=== PATIENT | female | born 2000 ===

== ENCOUNTER 2024-06-10 21:50 | Emergency (ER) | payer OTHER ==
[2024-06-11] MEDS: Ondansetron 4 MG/2 ML SDV IVPUSH ONE (00:10)
[2024-06-11] MEDS: Sodium Chloride 0.9% 1,000 ML IV ONE ×3 (00:10→03:19)
[2024-06-11] MEDS: Sodium Chloride 0.9% 10 ML Syringe FLUSH PRN (00:10)
[2024-06-11] MEDS: Famotidine 20 MG/2 ML SDV IVPUSH ONE (00:10)
[2024-06-11 00:36] LABS: BASOPHILS ABSOLUTE AUTO 0.04 K/uL (0.00-0.20); BASOPHILS PERCENT AUTO 0.2 % (0.0-1.0); HEMATOCRIT 49.2 % (37.0-47.0); HEMOGLOBIN 16.5 g/dL (12.0-16.0); IMMATURE GRAN PERCENT AUTO 0.5 % (0.0-0.4); LYMPHOCYTES ABSOLUTE AUTO 2.16 K/uL (1.00-4.80); LYMPHOCYTES PERCENT AUTO 10.2 % (24.0-44.0); MEAN CORPUSCULAR HEMOGLOBIN 29.5 pg (28.0-32.0); MEAN CORPUSCULAR HGB CONC 33.5 g/dL (32.0-36.0); MEAN PLATELET VOLUME 10.3 fL (9.4-12.3); MONOCYTES ABSOLUTE AUTO 2.29 K/uL (0.00-0.80); MONOCYTES PERCENT AUTO 10.8 % (0.0-8.0); NEUTROPHILS ABSOLUTE AUTO 16.69 K/uL (1.80-7.70); NEUTROPHILS PERCENT AUTO 78.3 % (41.0-71.0); PLATELET COUNT,PLT 367 K/uL (150-400); RED BLOOD CELL COUNT 5.59 M/uL (4.10-5.30); WHITE BLOOD CELL COUNT,WBC 21.28 K/uL (3.9-11.3)
[2024-06-11 00:49] LABS: APPEARANCE,URINE SLT CLOUDY; COLOR,URINE YELLOW; GLUCOSE,URINE NEGATIVE (NEGATIVE); KETONES,URINE 40 mg/dL (NEGATIVE); LEUKOCYTE ESTERASE,URINE NEGATIVE (NEGATIVE); NITRITE,URINE NEGATIVE (NEGATIVE); OCCULT BLOOD,URINE TRACE-INTACT (NEGATIVE); PROTEIN,URINE >=300 mg/dL (NEGATIVE); UROBILINOGEN,URINE 0.2 EU/dL (<2.0)
[2024-06-11 00:57] LABS: ALBUMIN 4.6 g/dL (3.4-5.0); BILIRUBIN TOTAL 0.8 mg/dL (0.2-1.0); CALCIUM 9.9 mg/dL (8.5-10.1); CARBON DIOXIDE,CO2 24.8 mmol/L (21.0-32.0); CREATININE 1.2 mg/dL (0.6-1.0); EST CRCL DRUG DOSING (CG) 67.67 mL/min; MAGNESIUM 2.8 mg/dL (1.8-2.4); POTASSIUM,K 3.9 mmol/L (3.5-5.1); PROTEIN TOTAL,TP 9.1 g/dL (6.4-8.2)
[2024-06-11 00:57] LABS: BACTERIA,URINE MODERATE (NEGATIVE); BILIRUBIN,URINE SMALL (NEGATIVE); EPITHELIAL CELLS,URINE MODERATE (NONE-FEW); WBC,URINE 0-2 (0-5/HPF)
[2024-06-11 00:58] LABS: MUCUS,URINE MODERATE (NONE-MOD)
[2024-06-11 01:03] LABS: INR 1.18 (0.86-1.11)
[2024-06-11] MEDS: Iopamidol 755 MG/ML 500 ML Multipack Bottle IVPUSH ONE (02:54)
[2024-06-11] MEDS: Promethazine 25 MG/ML SDV IM ONE (03:36)
== END 2024-06-11 04:56 | disposition home or self-care (01) ==
LOC: MW.ED 21:50
DX: R11.2 Nausea with vomiting, unspecified (principal); R10.84 Generalized abdominal pain; N30.01 Acute cystitis with hematuria; R80.9 Proteinuria, unspecified; R79.89 Other specified abnormal findings of blood chemistry; E86.0 Dehydration; D72.829 Elevated white blood cell count, unspecified
CPT/HCPCS: 36415; 74177; 80053; 81001; 83605; 83690; 83735; 84703; 85025; 85610; 96361; 96372; 96374; 96375; 99284; J2405; J2550; J3490; J7030; Q9967

== ENCOUNTER 2024-06-12 17:56 | Emergency (ER) | payer OTHER ==
[2024-06-12] MEDS ORDERED: Sodium Chloride 0.9% 2.5 ML Syringe FLUSH PRN (17:59)
[2024-06-12] MEDS ORDERED: Sodium Chloride 0.9% 10 ML Syringe FLUSH PRN (17:59)
[2024-06-12] MEDS: Ondansetron 4 MG/2 ML SDV IVPUSH STA (18:09)
[2024-06-12] MEDS: Promethazine 25 MG/ML SDV IM STA (18:25)
[2024-06-12] MEDS: Sodium Chloride 0.9% 1,000 ML IV STA ×2 (18:25→19:15)
[2024-06-12 18:36] LABS: HEMATOCRIT 45.3 % (37.0-47.0); HEMOGLOBIN 15.3 g/dL (12.0-16.0); MEAN CORPUSCULAR HEMOGLOBIN 29.7 pg (28.0-32.0); MEAN CORPUSCULAR HGB CONC 33.8 g/dL (32.0-36.0); MEAN PLATELET VOLUME 9.7 fL (9.4-12.3); PLATELET COUNT,PLT 341 K/uL (150-400); RED BLOOD CELL COUNT 5.15 M/uL (4.10-5.30)
[2024-06-12 18:59] LABS: ALANINE AMINOTRANSFERASE,ALT 26 IU/L (14-63); ALBUMIN 4.3 g/dL (3.4-5.0); ALKALINE PHOSPHATASE 67 U/L (46-116); ASPARTATE AMNIOTRANSFERASE,AST 28 IU/L (15-37); BILIRUBIN TOTAL 1.5 mg/dL (0.2-1.0); BLOOD UREA NITROGEN,BUN 18 mg/dL (7.0-18.0); CALCIUM 9.6 mg/dL (8.5-10.1); CARBON DIOXIDE,CO2 24.5 mmol/L (21.0-32.0); CHLORIDE,CL 107 mmol/L (98-107); CREATININE 1.2 mg/dL (0.6-1.0); GLUCOSE RANDOM 117 mg/dL (74-106); LIPASE 61 U/L (16-77); POTASSIUM,K 3.4 mmol/L (3.5-5.1); PROTEIN TOTAL,TP 8.4 g/dL (6.4-8.2); SODIUM,NA 146 mmol/L (136-145)
[2024-06-12 19:00] LABS: A/G RATIO 1.1 (0.9-1.6); ESTIMATED GFR 65 mL/min (>60)
[2024-06-12 19:02] LABS: LYMPHOCYTES ABSOLUTE MAN 2.69 K/uL (1.00-4.80); LYMPHOCYTES PERCENT MAN 16 % (24-44); MONOCYTES ABSOLUTE MAN 1.34 K/uL (0.00-0.80); MONOCYTES PERCENT MAN 8 % (0-8); SEG NEUTROPHILS ABSOLUTE MAN 12.77 K/uL (1.80-7.70); SEG NEUTROPHILS PERCENT MAN 76 % (41-71)
[2024-06-12] MEDS: Prochlorperazine 10 MG/2 ML SDV IVPUSH STA (21:35)
[2024-06-12] MEDS: diphenhydrAMINE 50 MG/ML SDV IVPUSH STA (22:36)
[2024-06-12] MEDS: Metoclopramide 10 MG/2 ML SDV IVPUSH STA (22:36)
== END 2024-06-12 22:57 | disposition home or self-care (01) ==
LOC: MW.ED 17:56
DX: R11.2 Nausea with vomiting, unspecified (principal); E86.0 Dehydration; Z75.8 Other problems related to medical facilities and other health care
CPT/HCPCS: 36415; 80053; 83690; 83735; 84703; 85025; 96361; 96372; 96374; 96375; 99284; J0780; J1200; J2550; J2765; J7030